=== PATIENT | female | born 1955 | race Caucasian/White ===

== ENCOUNTER → 2021-04-15 10:09 | Outpatient (CLI) | payer OTHER, SELFPAY ==
--- NOTE | 2021-04-15 10:45 | MRI_ITS ---
HISTORY: DDD. TECHNIQUE: Multiplanar and multisequence MR images of the lumbar spine. IV Contrast dosage and agent: None. # of images incl. paperwork: 164. COMPARISON: None. FINDINGS: VERTEBRAE: Vertebral body heights maintained. Degenerative bone marrow endplate changes at multiple levels. ALIGNMENT: 3 mm retrolisthesis of L2-3 and L3-4. Mild scoliosis. [place]US: Normal morphology and position at L1. SOFT TISSUES: Mild posterior subcutaneous edema. Fatty atrophy of the posterior paraspinal musculature. INTERVERTEBRAL DISCS: Multilevel degenerative changes with posterior disc bulge osteophyte complexes and facet arthropathy. L1-2, L2-3: No significant central canal stenosis or foraminal narrowing. L3-4: Minimal narrowing of the thecal sac. Moderate right and mild left foraminal narrowing. L4-5: No significant central canal stenosis. Very mild bilateral foraminal narrowing. L5-S1: Minimal narrowing of the thecal sac. Moderate left foraminal narrowing with abutment of the left L5 nerve root. MRI/Spine Lumbar (Routine) IMPRESSION: Multilevel degenerative disc disease as described above. at [id number] Reported and signed by: Johnna Nguyễn MD Electronically Signed: Johnna Nguyễn MD at 16:38 EDT Tel , Service support ,
== END ==
PROVIDERS: PCP Nurse Practitioner Family
DX: M51.36 Other intervertebral disc degeneration, lumbar region (principal)
CPT/HCPCS: 72148

== ENCOUNTER → 2023-11-25 | Outpatient (CLI) | payer MEDICARE, OTHER, SELFPAY ==
--- NOTE | 2023-11-25 13:03 | US_ITS ---
PROCEDURE: RENAL ULTRASOUND - COMPLETE REASON FOR EXAM: Female, 68 years old. Overactive bladder TECHNIQUE: Ultrasound evaluation of the bilateral kidneys was performed with real-time ultrasonography and static grayscale imaging. COMPARISON: None. FINDINGS: RIGHT KIDNEY: Normal location of the right kidney which is normal in size. The right kidney measures 14 x 6.6 x 4.5 cm. There is a normal cortex of the right kidney. The renal cortex measures 1.5 cm. There is no right renal mass or cyst. There are no right renal calculi. There is mild hydronephrosis of the right kidney. DISTAL RIGHT URETER: There is non-visualization of the distal right ureter. There is no demonstrated right ureterovesical junction calculus. There is a visualized right ureteral jet. LEFT KIDNEY: Normal location of the left kidney which is normal in size. The left kidney measures 13.8 x 5.7 x 5.7 cm. There is a normal cortex of the left kidney. The renal cortex measures 1.6 cm. There is no left renal mass or cyst. There are no left renal calculi. There is no left hydronephrosis. DISTAL LEFT URETER: There is non-visualization of the distal left ureter. There is no demonstrated left ureterovesical junction calculus. There is a visualized left ureteral jet. BLADDER: The distended urinary bladder has a volume of 266 ml. There is a normal wall thickness of the distended urinary bladder. There is no demonstrated mass within the urinary bladder. There is no demonstrated bladder calculi. Incidentally noted is a mass in the uterus on the right side measuring about 3.6 cm likely due to uterine fibroid better evaluated by pelvic ultrasound. US/Kidney and Bladder IMPRESSION: 1. Mild right hydronephrosis. 2. Probable uterine fibroid. Electronically Signed: Luiz Howell MD at 12:43 EST ,
== END | disposition home or self-care (01) ==
PROVIDERS: PCP Family Medicine; Referring Provider Urology; Visit Provider Urology
DX: N32.81 Overactive bladder (principal); R35.1 Nocturia; N95.2 Postmenopausal atrophic vaginitis; N39.41 Urge incontinence
CPT/HCPCS: 76770

== ENCOUNTER → 2023-12-14 | Outpatient (CLI) | payer MEDICARE, OTHER, SELFPAY ==
--- NOTE | 2023-12-14 17:25 | CT_ITS ---
STUDY: CT ABDOMEN AND PELVIS WITH AND WITHOUT CONTRAST REASON FOR EXAM: Female, 68 years old. Hydronephrosis. Recurring UTIs. RADIATION DOSAGE (If Supplied By Facility): CTDIvol = ( 24.63 ) mGy, DLP = ( 4537.07 ) mGycm TECHNIQUE: Transaxial images were obtained from the dome of the diaphragm to the symphysis pubis without oral contrast. IV 100mL Isovue-300 was administered. Sagittal and coronal images were reconstructed. Individualized dose optimization techniques were used for this CT. COMPARISON: Comparison is made with prior ultrasound of the kidneys dated November 25, 2023. FINDINGS: Mild increased markings at the lung bases suggestive of scarring. Coronary artery calcification. Mild hepatomegaly. There are surgical clips in the gallbladder fossa consistent with a prior cholecystectomy. Normal spleen. Normal pancreas. Normal bilateral adrenal glands. Mild degree of right hydronephrosis. Normal left kidney. Normal visualized stomach. Normal small intestine. There are scattered colonic diverticula consistent with diverticulosis. There are surgical clips in the region of the appendix consistent with a prior appendectomy. There is scattered atherosclerotic calcification of the abdominal aorta, without a demonstrated aneurysm. Normal inferior vena cava. Normal retroperitoneum. Normal urinary bladder. There is a pedunculated 2.9 cm x 3.4 cm fibroid arising from the right side of the body of the uterus. Normal abdominal wall. There are diffuse degenerative changes of the visualized lumbar spine. CT/CT Abd/Pelvis W/WO Contrast IMPRESSION: Mild degree of right hydronephrosis. Uterine fibroid. Status post cholecystectomy and appendectomy. Electronically Signed: Pedrito Muhammad MD at 14:31 EDT ,
[2023-12-14 17:50] LABS: CREATININE FINGERSTICK < 1.0 mg/dL (0.55-1.02); EGFR FINGERSTICK > 60.0000 mL/min (>60)
== END | disposition home or self-care (01) ==
LOC: CT 17:21
PROVIDERS: PCP Family Medicine; Referring Provider Urology; Visit Provider Urology
DX: N13.30 Unspecified hydronephrosis (principal)
CPT/HCPCS: 74178; Q9967; A4216

== ENCOUNTER → 2024-02-01 | Outpatient (CLI) | payer MEDICARE, OTHER, SELFPAY ==
--- NOTE | 2024-02-01 10:45 | NM_ITS ---
CLINICAL: 68-year-old female with history of right kidney hydronephrosis. 99m Tc MAG3 DIURETIC RENAL SCINTIGRAPHY COMPARISON: None available FINDINGS: Following the intravenous administration of 10.8 mCi of 99m Tc MAG3, renal images reveal: 1. The flow study demonstrates relatively symmetric arterial phase distribution of the radiotracer to the bilateral kidneys. 2. Immediate static delayed nephrogram images depict prompt and homogeneous tracer concentration by the renal parenchyma of both kidneys. Decreased radiopharmaceutical concentration is demonstrated in the left renal unit relative to the right. Collecting structure visualization is demonstrated by 4 minutes post tracer injection bilaterally. Washout of the radiopharmaceutical by the renal parenchyma appears qualitatively delayed bilaterally. Spontaneous drainage of the left kidney collecting system is noted prior to furosemide administration. There is persistent collecting system activity demonstrated in the right kidney during 20 minutes of pre-Lasix sequential image acquisition. 3. The [id number] ratio of total renal parenchymal function was calculated to be 53/47. Furosemide 10 mg was administered intravenously. The post Lasix T ? washout of the right kidney collecting system activity was calculated to be 14.86 minutes, (normal < 10 minutes). NM/Renal Scan w/ Pharm Intervent IMPRESSION: 1. There is scintigraphic evidence of bilateral renal parenchymal-cortical dysfunction. 2. The right kidney collecting system demonstrates an indeterminate response (T ? > 10 and < 20 minutes) to furosemide administration. 3. Spontaneous drainage of the left kidney collecting system is demonstrated as described above. Electronically Signed: Mars Steiner DO at 9:25 EDT ,
== END | disposition home or self-care (01) ==
PROVIDERS: PCP Family Medicine; Referring Provider Urology; Visit Provider Urology
DX: N13.30 Unspecified hydronephrosis (principal)
CPT/HCPCS: 78708; A9562; J1940

== ENCOUNTER → 2024-04-18 | Outpatient (CLI) | payer MEDICARE, OTHER, SELFPAY ==
--- NOTE | 2024-04-18 12:49 | US_ITS ---
PROCEDURE: RENAL ULTRASOUND - COMPLETE REASON FOR EXAM: Female, 69 years old. Hydronephrosis TECHNIQUE: Ultrasound evaluation of the bilateral kidneys was performed with real-time ultrasonography and static grayscale imaging. COMPARISON: CT scan of the abdomen and pelvis of 12/14/2023 FINDINGS: RIGHT KIDNEY: Normal location of the right kidney which is normal in size. The right kidney measures 14 x 4.7 x 4.8 cm. There is a normal cortex of the right kidney. The renal cortex measures 1.7 cm. There is no right renal mass or cyst. There are no right renal calculi. There is mild hydronephrosis of the right kidney. DISTAL RIGHT URETER: There is non-visualization of the distal right ureter. There is no demonstrated right ureterovesical junction calculus. There is a visualized right ureteral jet. LEFT KIDNEY: Normal location of the left kidney which is normal in size. The left kidney measures 14.3 x 6 x 5.8 cm. There is a normal cortex of the left kidney. The renal cortex measures 2.5 cm. There is no left renal mass or cyst. There are no left renal calculi. There is no left hydronephrosis. DISTAL LEFT URETER: There is non-visualization of the distal left ureter. There is no demonstrated left ureterovesical junction calculus. There is a visualized left ureteral jet. BLADDER: The distended urinary bladder has a volume of 312 ml. There is a normal wall thickness of the distended urinary bladder. There is no demonstrated mass within the urinary bladder. There is no demonstrated bladder calculi. US/Kidney and Bladder IMPRESSION: Mild right hydronephrosis. Electronically Signed: Luiz Howell MD at 14:47 EDT ,
== END | disposition home or self-care (01) ==
PROVIDERS: PCP Family Medicine; Referring Provider Urology; Visit Provider Urology
DX: N13.30 Unspecified hydronephrosis (principal)
CPT/HCPCS: 76770

== ENCOUNTER → 2025-05-08 | Outpatient (CLI) | payer MEDICARE, OTHER, SELFPAY ==
--- NOTE | 2025-05-08 11:57 | US_ITS ---
PROCEDURE: KIDNEY AND BLADDER 05/08/2025 REASON FOR EXAM: HYDRONEPHROSIS TECHNIQUE: KIDNEY AND BLADDER COMPARISON: Prior study dated April 18, 2024. FINDINGS: Kidneys: Normal renal sizes, parenchymal thicknesses, and echotextures. [place]: No evidence of hydronephrosis. Cysts or Masses: No cysts or large solid renal masses. RIGHT Kidney Size: 14.6 cm x 4.7 cm x 4.2 cm Volume: 170.21 mL Cortical Thickness (if discernible): 17 mm (>6mm is normal) LEFT Kidney Size: 13.9 cm x 4.9 cm x 5.6 cm Volume: 198.23 mL Cortical Thickness (if discernible): 12 mm (>6mm is normal) US/Kidney and Bladder IMPRESSION: NORMAL RENAL ULTRASOUND. Reading Location: [id number]
== END | disposition home or self-care (01) ==
LOC: US 11:53
PROVIDERS: PCP Family Medicine; Referring Provider Urology; Visit Provider Urology
DX: N13.30 Unspecified hydronephrosis (principal)
CPT/HCPCS: 76770